=== PATIENT | male | born 2000 | race American Indian/Alaskan Native ===

== ENCOUNTER 2022-02-18 04:14 | Emergency (ER) | payer OTHER ==
[2022-02-18] MEDS ORDERED: Bacitracin Oint 1 GM U/D Packet TOP ONE (04:39)
== END 2022-02-18 04:50 | disposition home or self-care (01) ==
LOC: DL.ED 04:14
DX: S61.411A Laceration without foreign body of right hand, initial encounter (principal); W22.09XA Striking against other stationary object, initial encounter
CPT/HCPCS: 73130-RT; 99283; 99283-25

== ENCOUNTER 2023-05-19 07:11 | Emergency (ER) | payer SELFPAY ==
[2023-05-19] MEDS ORDERED: Tetracaine HCl/PF 0.5% 4 ML Bottle EYERT ONE (07:30)
[2023-05-19] MEDS ORDERED: prednisoLONE Acetate 1% Ophth Susp 5 ML Bottle EYERT ONE (07:32)
[2023-05-19] MEDS ORDERED: Gentamicin 0.3% Ophth Soln 5 ML Bottle EYERT ONE (07:33)
== END 2023-05-19 07:55 | disposition home or self-care (01) ==
LOC: DL.ED 07:11
DX: H15.091 Other scleritis, right eye (principal)
CPT/HCPCS: 99282; 99283; A9270; J3490

== ENCOUNTER 2024-05-19 00:55 | Emergency (ER) | payer OTHER ==
[2024-05-19 01:20] LABS: BASOPHILS PERCENT AUTO 0.2 % (0.0-1.0); EOSINOPHILS PERCENT AUTO 5.3 % (1.0-3.0); HEMATOCRIT 48.4 % (40.0-54.0); HEMOGLOBIN 16.2 g/dL (14.0-18.0); LYMPHOCYTES PERCENT AUTO 19.8 % (20.5-50.1); MEAN CORPUSCULAR HEMOGLOBIN 28.9 pg (27.0-34.0); MEAN CORPUSCULAR HGB CONC 33.5 g/dL (33.0-35.0); MEAN CORPUSCULAR VOLUME 86.4 fL (80-100); MONOCYTES PERCENT AUTO 12.2 % (2-8); NEUTROPHILS PERCENT AUTO 62.5 % (42.2-75.2); PLATELET COUNT,PLT 237 10^3/uL (150-450); WHITE BLOOD CELL COUNT,WBC 8.9 10^3/uL (5.0-10.0)
[2024-05-19] MEDS: Morphine 2 MG/ML SYRINGE IVPUSH ONE (01:21)
[2024-05-19 01:40] LABS: A/G RATIO 1.1; ALBUMIN 4.3 g/dL (3.4-5.0); ANION GAP 17.6 mEq/L (7-13); BILIRUBIN TOTAL 0.3 mg/dL (0.2-1.0); BUN/CREATININE RATIO 10.5 (No establ ref range); CALCIUM 9.2 mg/dL (8.5-10.1); CREATININE 0.95 mg/dL (0.70-1.30); EST CRCL DRUG DOSING (CG) 135.5 mL/min; POTASSIUM,K 3.6 mmol/L (3.5-5.1); PROTEIN TOTAL,TP 8.2 g/dL (6.4-8.2)
[2024-05-19 01:46] LABS: AMPHETAMINES,URINE NEGATIVE (NEGATIVE); BARBITURATES,URINE NEGATIVE (NEGATIVE); BENZODIAZEPINE,URINE NEGATIVE (NEGATIVE); MDMA (ECSTASY), URINE NEGATIVE (NEGATIVE); METHADONE,URINE NEGATIVE (NEGATIVE); METHAMPHETAMINES,URINE NEGATIVE (NEGATIVE); OPIATES,URINE NEGATIVE (NEGATIVE); OXYCODONE,URINE NEGATIVE (NEGATIVE); PHENCYCLIDINE,URINE NEGATIVE (NEGATIVE); TCA,URINE NEGATIVE (NEGATIVE)
== END 2024-05-19 03:29 | disposition home or self-care (01) ==
LOC: DL.ED 00:55
DX: S00.531A Contusion of lip, initial encounter (principal); R04.0 Epistaxis; F10.121 Alcohol abuse with intoxication delirium; F19.90 Other psychoactive substance use, unspecified, uncomplicated; V47.5XXA Car driver injured in collision with fixed or stationary object in traffic accident, initial encounter
CPT/HCPCS: 36415; 70450; 80053; 80305-QW; 80307; 85025; 96374; 99284; 99285-25; J2270